=== PATIENT | male | born 1985 | race Caucasian/White ===

== ENCOUNTER 2020-10-03 16:18 | Emergency (ER) | payer OTHER, SELFPAY ==
[2020-10-03 19:03] VITALS: BP 148/81; PULSE 79; RESP 16; TEMP 36.7; O2SAT 98; BMI 27.3
--- NOTE | 2020-10-03 19:07 | ED.URI ---
HPI - URI/Sore Throat General Chief Complaint: General Medical Stated Complaint: chest pain,cough Time Seen by Provider: 10/03/20 19:00 Source: patient Mode of arrival: ambulatory Limitations: no limitations History of Present Illness HPI Narrative: 35-year-old male with a past medical history of asthma here with cough, chest pain and shortness of breath for the last 24 hours. Pain is worsened with deep breathing calming movement and lifting.No fevers or chills. The patient tells me he felt like he was wheezing and uses albuterol inhaler with continued symptoms. No calf pain. No recent travel or sick contact. The patient also tells me a few days ago he struck his right great toe and has pain which is worsened with weight-bearing. No redness, warmth, drainage or open area. MD elicited complaint: cough Pertinent past history: asthma Onset (ago): day(s) Consistency: intermittent Severity: mild Able to tolerate fluids by mouth: Yes Exacerbating factors: exertion, speaking and deep breaths Relieving factors: nothing Associated symptoms: chest pain and shortness of breath Treatments prior to arrival: none Related Data Previous Rx's Medication Instructions Recorded prednisone 40 mg PO DAILY #10 tab 10/03/20 Allergies Allergy/AdvReac Type Severity Reaction Status Date / Time No Known Allergies Allergy Unverified 07/24/20 15:30 [No Known Allergies*] Review of Systems Review of Systems: Yes all other systems are reviewed and are negative Constitutional: Constitutional: Reports no additional constitutional complaints, Denies body ache(s), Denies chills, Denies fever(s), Denies headache(s) and Denies weakness Eyes: Eyes: Reports no additional eye complaints and Denies change in vision ENT: Reports system reviewed and no additional complaints, except as documented, Denies dizziness, Denies headache(s), Denies nasal congestion, Denies nasal discharge and Denies neck pain Cardiovascular: Cardiovascular: Reports no additional cardiovascular complaints, Reports chest pain, Denies leg edema and Reports dyspnea Respiratory: Respiratory: Reports no additional respiratory complaints, Reports cough and Reports dyspnea Gastrointestinal: Gastrointestinal: Reports no additional gastrointestinal complaints, Denies abdominal pain, Denies diarrhea, Denies nausea and Denies vomiting Genitourinary: Genitourinary: Denies urinary incontinence Musculoskeletal: Musculoskeletal: Reports no additional musculoskeletal complaints, Denies back pain, Reports arthralgias, Reports joint swelling, Denies neck pain, Denies numbness and Denies tingling Integumentary/Breasts: Skin/Breast: Reports system reviewed and no additional complaints, except as docu and Denies rash Neurologic: Denies Abnormal speech present, Denies dizziness, Denies headache(s), Denies numbness, Denies tingling and Denies weakness PMFSH Past Medical History Attestation statement: The following information was validated with the patient. Source: old records reviewed and nursing notes reviewed Medical History Asthma Social History Social History Smoked in Last 30 Days: No Use of substances other than those prescribed or required for medical reasons: No Advance Directives: No Physical Exam Vital Signs: Vital Signs: Last Vital Signs Temp 98.1 F 10/03/20 19:03 Pulse 79 10/03/20 19:03 Resp 16 10/03/20 19:03 BP 148/81 H 10/03/20 19:03 Pulse Ox 98 10/03/20 19:03 Body Mass Index 27.3 Const: General: cooperative, healthy appearing, comfortable and no acute distress Orientation/consciousness: patient oriented x3 Limitations: no limitations HENMT: Head: Yes normal to inspection Ears: hearing grossly normal bilaterally General nose exam: Normal external nose present Face and sinus: Yes normal facial exam Mouth: Normal oral and palatal mucosa present Throat: Yes posterior oropharynx normal Eyes: General: appearance normal, both eyes and all related structures Pupils: Equal, round and reactive pupils present Neck: Neck: Yes normal visual inspection Chest: Other: Central chest tender to palpate and is worsened with deep breathing and movement of the arms and trunk Chest palpation & inspection: normal inspection of the chest Resp: Effort & Inspection: normal respiratory effort Auscultation: clear to auscultation bilaterally Cardio: Rate: regular rate Rhythm: regular rhythm Peripheral pulses: Peripheral pulses 2+ throughout GI: Inspection: Yes normal to inspection Palpation (GI): Soft to palpation and nontender Auscultation: normal bowel sounds Back/Spine/Pelvis: Thoracic/Lumbar Spine: thoracic and lumbar spine normal to inspection Skin: General skin exam: no rashes or lesions noted Neuro: General: patient oriented x3, no focal motor deficits and normal sensation to monofilament Cranial nerves: Yes Equal, round and reactive pupils present Cognition (Neuro): normal cognition Speech: No Abnormal speech present Gait exam (Neuro): Normal gait present Motor exam (neuro): 5/5 motor strength present throughout Extrem: General: Yes normal to inspection Course Course Course Narrative: 35-year-old male past with history of asthma here with dry cough, shortness of breath with exertion and some musculoskeletal chest pain. On exam the patient has pain which is worsened with deep breathing and movement is very reproducible on exam. He has no shortness of breath and speaking full sentences and I witnessed him to walk around with no difficulty or shortness of breath. He does have an occasional dry cough but has no wheezing and has clear lung sounds with stable saturations. His chest x-ray is negative for underlying infection. His COVID and flu swab is negative. Discussed with patient the may be secondary to his underlying asthma. Also component of chest wall strain secondary to coughing. Reviewed follow-up with primary care doctor outpatient. Reviewed worrisome signs symptoms or return to the emergency department. Comfortable discharge home. MDM - URI/Sore Throat MDM Narrative Medical decision making narrative: Viral syndrome, COVID-19 infection, pneumonia, pneumothorax, ACS Less likely of the COVID-19 infection with negative swab. Considered viral infection. This likely pneumonia with unremarkable chest x-ray. Less likely pneumothorax unremarkable chest x-ray. Less likely ACS with unremarkable EKG and heart score 0. Medical Records Attestation: I reviewed the patient's medical records. Lab Data Attestation: I reviewed the patient's lab results. Labs: Lab Results 10/03/20 Range/Units 19:10 Coronavirus (PCR) NEGATIVE (Negative) Influenza Type A (PCR) NEGATIVE (Negative) Influenza Type B (PCR) NEGATIVE (Negative) RSV RNA Qual (PCR) NEGATIVE (Negative) Imaging Data Chest x-ray: Attestation: I personally reviewed and interpreted this imaging study as follows: Radiologist's impression: EXAMINATION: XR CHEST CLINICAL INFORMATION: Cough chest pain COMPARISON: Prior chest November 2014 TECHNIQUE: Frontal view of the chest was obtained. FINDINGS: No significant abnormality is noted involving the heart, lungs, mediastinum, bony thorax or soft tissues. XR/XR chest 1V IMPRESSION: Unremarkable examination. foot xray: Attestation: I personally reviewed and interpreted this imaging study as follows: Radiologist's impression: EXAMINATION: XR FOOT, RIGHT CLINICAL INFORMATION: Trauma pain COMPARISON: X-rays of the right ankle June 2016 TECHNIQUE: AP, lateral, and oblique views of the right foot. FINDINGS: The bones and soft tissues are normal. No fracture. Alignment is anatomic. Joint spaces are maintained. XR/XR foot RT min 3V IMPRESSION: Normal right foot. ECG Data Attestation: I personally reviewed and interpreted this ECG as follows: ECG interpretation date: 10/03/20 ECG interpretation time: 21:15 Discharge Plan Discharge Clinical Impression: Chest wall muscle strain, Asthma, Contusion Patient Disposition: Home, Self-Care Instructions: Asthma (ED), Foot Contusion (ED), Chest Wall Pain (ED) Prescriptions: New prednisone 20 mg tablet 40 mg PO DAILY Qty: 10 RF: 0 Referrals: Forrest Gongora MD [Primary Care Provider] - 2 days Interventions: ED Discharge Assessment Last Done: 10/03/20 21:34 Discharge Date/Time: 10/03/20 21:36
[2020-10-03 20:09] LABS: Influenza A PCR NEGATIVE (Negative); Influenza B PCR NEGATIVE (Negative); Resp Syncy Virus RNA Qual PCR NEGATIVE (Negative); SARS COV2 PCR INHOUSE NEGATIVE (Negative)
== END 2020-10-03 21:36 | disposition home or self-care (01) ==
PROVIDERS: Nurse Practitioner Family; Emergency Provider Emergency Medicine; PCP Internal Medicine
DX: R05 Cough (principal); R07.9 Chest pain, unspecified; M79.671 Pain in right foot; J45.909 Unspecified asthma, uncomplicated; Z79.899 Other long term (current) drug therapy; Z20.828 Contact with and (suspected) exposure to other viral communicable diseases
CPT/HCPCS: 0241U; 71045; 73630; 99283; 99284

== ENCOUNTER 2021-04-22 20:26 | Emergency (ER) | payer OTHER, SELFPAY ==
[2021-04-22 20:43] VITALS: BP 143/103; PULSE 105; RESP 20; TEMP 37.4; O2SAT 96; BMI 28.1
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
[2021-04-22] MEDS: Amoxicillin/Potassium Clav 875 MG TABLET PO (20:58)
[2021-04-23 03:51] LABS: HBS Num1 15.53 mIU/mL (0-7.99); ~HepC Num1 0.08 S/CO (0.00-0.79); ~Hepatitis B Surface Antibody REACTIVE (Nonreactive); ~Hepatitis C Antibody Nonreactive (Nonreactive)
[2021-04-23 03:52] LABS: HBc Num1 0.06 S/CO (0.00-0.79); Hepatitis B Core Antibody Nonreactive (Nonreactive); Hepatitis B Surface Antigen Negative (Negative)
[2021-04-24 03:54] LABS: Hepatitis A Antibody IgM 0.21 Index (0-0.79); ~Hepatitis A Antibody IgM Nonreactive (Nonreactive)
== END 2021-04-22 21:17 | disposition home or self-care (01) ==
PROVIDERS: Nurse Practitioner Family; Emergency Provider Emergency Medicine Emergency Medical Services; PCP Internal Medicine
DX: S60.871A Other superficial bite of right wrist, initial encounter (principal); W50.3XXA Accidental bite by another person, initial encounter; Y93.9 Activity, unspecified; Y92.9 Unspecified place or not applicable; Y99.0 Civilian activity done for income or pay
CPT/HCPCS: 36415; 86704; 86706; 86709; 86803; 87340; 99283

== ENCOUNTER → 2024-07-31 15:24 | Outpatient (BNVA) | payer SELFPAY | PROVIDERS: PCP Internal Medicine ==